=== PATIENT | female | born 1990 | race Caucasian/White ===

== ENCOUNTER 2016-09-27 11:59 | Emergency (ER) | payer MEDICAID ==
[~2016-09-27] VITALS: Ht 154.9 cm; Wt 52.2 kg
[2016-09-27 13:19] LABS: Basophils # (auto) 0.1 uL; Basophils % (auto) 0.7 % (0.0-2.0); CONDITION Y; Eosinophils # (auto) 0.2 uL; Eosinophils % (auto) 1.9 % (0.0-7.0); Hematocrit 43.8 % (36.0-46.0); Hemoglobin 14.6 g/dL (12.2-16.2); Lymphocytes # (auto) 1.1 uL; Lymphocytes % (auto) 12.2 % (10.0-50.0); Mean Corpuscular Hemoglobin 29.4 pg (28.0-32.0); Mean Corpuscular Hgb Conc. 33.3 g/dL (32.0-36.0); Mean Corpuscular Volume 88.1 fL (80.0-100.0); Mean Platelet Volume 9.8 fL (7.4-10.4); Monocytes # (auto) 0.4 uL; Monocytes % (auto) 3.9 % (0.0-12.0); Neutrophils # (auto) 7.4 uL; Neutrophils % (auto) 81.3 % (37.0-80.0); Platelet Count (auto) 251 10^3/uL (140-450); Red Cell Distribution Width 15.1 % (11.6-16.0); White Blood Cell 9.1 10^3/uL (4.4-10.8)
[2016-09-27 13:55] LABS: Albumin 4.6 g/dL (3.4-5.0); BUN/Creatinine Ratio 16.9; Calcium 9.3 mg/dL (8.5-10.1); Potassium 3.6 mmol/L (3.5-5.1)
[2016-09-27 13:57] LABS: Bilirubin, Total 0.4 mg/dL (0.2-1.0); Total Protein 8.5 g/dL (6.4-8.2)
[2016-09-27 14:39] VITALS: BP 125/98
[2016-09-27 14:48] LABS: Urine Bilirubin Negative (Negative); Urine Blood Negative /uL (Negative); Urine Color Yellow (Yellow); Urine Glucose Normal (Normal); Urine Mucus FEW (None Seen); Urine Nitrite Negative (Negative); Urine RBC 2 /hpf (0 - 4); Urine Squamous Epithelial Cell FEW /hpf (<5); Urine Urobilinogen Normal (Negative); Urine pH 7.5 (5.0-8.0)
[2016-09-27 14:49] LABS: Urine Ketone 3+ (Negative)
[2016-09-27] MEDS ORDERED: PANTOPRAZOLE 40 MG TAB PO ONE (15:00)
== END 2016-09-27 15:11 | disposition home or self-care (01) ==
LOC: ER 11:59
DX: K29.70 Gastritis, unspecified, without bleeding (principal); E86.0 Dehydration
CPT/HCPCS: 36415; 80053; 81001; 84702; 85025

== ENCOUNTER 2017-03-04 03:41 | Emergency (ER) | payer MEDICAID ==
[~2017-03-04] VITALS: Ht 154.9 cm; Wt 49.9 kg
[2017-03-04 03:50] VITALS: BP 159/91
== END 2017-03-04 06:28 | disposition left against medical advice (07) ==
LOC: ER 03:41
DX: J02.9 Acute pharyngitis, unspecified (principal); Z53.21 Procedure and treatment not carried out due to patient leaving prior to being seen by health care provider

== ENCOUNTER 2017-03-30 01:01 | Emergency (ER) | payer MEDICAID ==
[~2017-03-30] VITALS: Ht 154.9 cm; Wt 49.9 kg
[2017-03-30 01:37] VITALS: BP 140/78
== END 2017-03-30 01:19 | disposition left against medical advice (07) ==
LOC: ER 01:04
DX: R06.02 Shortness of breath (principal); Z53.21 Procedure and treatment not carried out due to patient leaving prior to being seen by health care provider